=== PATIENT | female | born 1965 | race Caucasian/White ===

== ENCOUNTER 2016-10-22 19:25 | Emergency (ER) | payer OTHER ==
[2016-10-22 19:41] VITALS: BP 135/70; PULSE 78; RESP 16; O2SAT 98
--- NOTE | 2016-10-22 19:43 | EDPHY ---
HPI/HX/ROS/PE/MDM Narrative: CHIEF COMPLAINT: Neck pain HPI: The patient is a 50-year-old female who states that she injured her neck and arms approximately to 3 months ago while at work. She has been dealing with persistent pain in her neck and both arms since that time. The patient has been on lifting restrictions since that time. She attempted to follow up with the [facility] today but they were unable to provide her with an appointment. She has an appointment scheduled for Saturday. She complains of persistent pain and is requesting a note excusing her from work until she can be re-evaluated. She denies any acute trauma. REVIEW OF SYSTEMS: Aside from elements discussed in the HPI, a comprehensive 10-point review of systems was reviewed and is negative. PMH: Chronic neck pain. SOCIAL HISTORY: Denies alcohol or drug abuse. PHYSICAL EXAM: General:Patient is alert, in no acute distress. ENT:Eyes are normal to inspection. ENT inspection normal. Neck: Normal inspection. Full range of motion. Extremities: Normal appearance. Full range of motion. Neuro: Oriented x3. Normal motor function. Normal sensory function. MDM: This patient presents with chronic neck pain radiating to both arms. I see no signs of acute medical emergency at this time. Patient is here primarily to obtain a note allowing her to miss work until she is seen by Occupational Health. I have provided her with this note. I do not think emergent imaging is indicated at this time. General Time Seen by Provider: 10/22/16 19:31 Initial Vital Signs: Initial Vital Signs Heart Rate 78 10/22/16 19:30 Respiratory Rate 16 10/22/16 19:30 Blood Pressure 135/70 H 10/22/16 19:30 O2 Sat (%) 98 10/22/16 19:30 O2 Delivery Mode Room Air Allergies/Adverse Reactions: Androgenic Anabolic Steroid Allergy (Verified 10/22/16 19:37) Home Medications: Medication Instructions Recorded NK [No Known Home Meds] 10/22/16 Departure - Departure Disposition: Home, Routine, Self-Care Clinical Impression: Neck pain Condition: Good Instructions: Neck Pain (ED) Additional Instructions: Follow-up with the workman's comp clinic on Saturday as scheduled. Referrals: CARLOS CORNELL,. [Primary Care Provider] - As per Instructions Stand Alone Forms: Work Excuse
[2016-10-22 19:44] VITALS: TEMP 97.9
== END 2016-10-22 19:50 | disposition home or self-care (01) ==
LOC: CED 19:25
DX: S19.9XXA Unspecified injury of neck, initial encounter (principal); X50.0XXA Overexertion from strenuous movement or load, initial encounter; Y92.69 Other specified industrial and construction area as the place of occurrence of the external cause